=== PATIENT | male | born 1995 | race Caucasian/White ===

== ENCOUNTER 2016-05-22 20:11 | Emergency (ER) | payer MEDICAID ==
[~2016-05-22] VITALS: Ht 188 cm; Wt 87.5 kg
[~2016-05-22 20:11] MED LIST: TYLENOL ES500 MG PO
[2016-05-22 20:21] VITALS: BP 144/73
--- NOTE | 2016-05-22 21:35 | NUR ---
TO ER BED 6
--- NOTE | 2016-05-22 21:35 | NUR ---
PT IS 20/M BIB SELF TO ED WITH C/O DIAARHEA WITH BLOOD, ABDOMINAL PAIN X 1 DAY, PT STATES HX. CHRONIC DIARRHEA. HX. ANXIETY, DEPRESSION ON CLONAPIN, CITALOPRAM. DENIES N/V AT THIS TIME; SKIN IS PINK/WARM/DRY; AAOX4 WITH EVEN AND STEADY GAIT; LUNGS CLEAR BL; HR EVEN AND REGULAR; PT DENIES ANY FEVER, CP, SOB, OR COUGH AT THIS TIME; PATIENT STATES PAIN OF 1/10 AT THIS TIME; VSS; PATIENT POSITIONED FOR COMFORT; HOB ELEVATED; BEDRAILS UP X2; BED DOWN. ER MD MADE AWARE OF PT STATUS.
[2016-05-22 22:21] VITALS: BP 133/72
--- NOTE | 2016-05-22 22:21 | NUR ---
Patient discharged with v/s stable. Written and verbal after care instructions given and explained. Patient alert, oriented and verbalized understanding of instructions. Ambulatory with steady gait. All questions addressed prior to discharge. ID band removed. Patient advised to follow up with PMD. Rx of TRAMADOL, PROTONIX, FLAGYL GIVEN given. Patient educated on indication of medication including possible reaction and side effects. Opportunity to ask questions provided and answered.
== END 2016-05-22 22:21 | disposition home or self-care (01) ==
LOC: MED 20:11
DX: A04.7 Enterocolitis due to Clostridium difficile (principal)

== ENCOUNTER 2017-07-30 16:13 | Emergency (ER) | payer MEDICAID ==
[~2017-07-30] VITALS: Ht 188 cm; Wt 91.4 kg
[~2017-07-30 16:13] MED LIST changes: +ACET-6134 PO; -TYLENOL ES500 MG PO
[2017-07-30 16:14] VITALS: BP 128/71
--- NOTE | 2017-07-30 16:19 | NUR ---
PT AMBULATES TO BED 11
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
--- NOTE | 2017-07-30 16:36 | NUR ---
XRAY AT BEDSIDE.
[2017-07-30 17:00] VITALS: BP 128/71
--- NOTE | 2017-07-30 17:00 | NUR ---
Patient discharged with v/s stable. Written and verbal after care instructions given and explained. Patient verbalized understanding. Ambulatory with steady gait. All questions addressed prior to discharge. Advised to follow up with PMD.
== END 2017-07-30 17:00 | disposition home or self-care (01) ==
LOC: MED 16:13
DX: S62.636A Displaced fracture of distal phalanx of right little finger, initial encounter for closed fracture (principal); X58.XXXA Exposure to other specified factors, initial encounter; Y93.89 Activity, other specified; Y99.8 Other external cause status; Y92.89 Other specified places as the place of occurrence of the external cause
CPT/HCPCS: 73140; 99284

== ENCOUNTER 2017-11-13 17:38 | Emergency (ER) | payer MEDICAID ==
[~2017-11-13] VITALS: Ht 188 cm; Wt 90.7 kg
[2017-11-13 18:20] VITALS: BP 120/69
--- NOTE | 2017-11-13 20:29 | NUR ---
VSS AT THIS TIME. UA COLLECTED. PT UPDATED REGARDING BED TIME.
--- NOTE | 2017-11-13 20:40 | NUR ---
N/A IN ER LOBBY
--- NOTE | 2017-11-13 20:51 | NUR ---
3RD CALL N/A IN ER LOBBY
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
--- NOTE | 2017-11-13 21:26 | NUR ---
Dr. [place] evaluating patient at bedside.
[2017-11-13] MEDS ORDERED: cefTRIAXone 250 MG in LIDOCAINE MPF 1% - 5 mL VIAL 0.9 ML IM ONE (21:45)
[2017-11-13] MEDS ORDERED: AZITHROMYCIN 250 MG TAB PO ONE (21:45)
[2017-11-13 22:15] VITALS: BP 119/82
[2017-11-13 22:20] LABS: APPEARANCE,URINE CLEAR (CLEAR); BILIRUBIN,URINE NEGATIVE (NEGATIVE); BLOOD, URINE NEGATIVE (NEGATIVE); COLOR,URINE YELLOW (YELLOW); LEUKOCYTE ESTERASE ,URINE NEGATIVE (NEGATIVE); NITRITE, URINE NEGATIVE (NEGATIVE); UGLUCOSE NEGATIVE (NEGATIVE)
== END 2017-11-13 22:15 | disposition home or self-care (01) ==
LOC: MED 17:38
DX: Z11.3 Encounter for screening for infections with a predominantly sexual mode of transmission (principal); Z88.2 Allergy status to sulfonamides
CPT/HCPCS: 36415; 81003; 96372; 99284; J0696; J2001

== ENCOUNTER 2018-12-04 22:59 | Emergency (ER) | payer MEDICAID ==
[~2018-12-04] VITALS: Ht 188 cm; Wt 97.5 kg
[2018-12-04 23:10] VITALS: BP 120/79
--- NOTE | 2018-12-04 23:15 | NUR ---
PT AMBULATED TO LOBBY.
--- NOTE | 2018-12-05 00:04 | NUR ---
PT AMBULATED TO ER BED 06
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
--- NOTE | 2018-12-05 01:45 | NUR ---
DEISI MEDINA CLEANED PT LACERATION
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
--- NOTE | 2018-12-05 03:27 | NUR ---
PT SLEEPING IN BED. NO SIGNS OF DISTRESS NOTED. WILL CONTINUE TO MONITOR.
[2018-12-05 03:31] VITALS: BP 127/86
--- NOTE | 2018-12-05 03:31 | NUR ---
DISCHARGE PAPERS GIVEN TO PT. STATES RELIEF. BLEEDING CONTROLLED. VSS. INSTRUCTED TO F/U WITH PCP AND WHEN TO RETURN TO ER. PT VERBALLIZED UNDERSTANDING OF DC INSTRUCTIONS. ALL QUESTIONS ANSWERED.
== END 2018-12-05 03:31 | disposition home or self-care (01) ==
LOC: MED 22:59
DX: S01.01XA Laceration without foreign body of scalp, initial encounter (principal); K21.9 Gastro-esophageal reflux disease without esophagitis; Z79.899 Other long term (current) drug therapy; Y09 Assault by unspecified means; Y93.89 Activity, other specified; Y92.89 Other specified places as the place of occurrence of the external cause; Y99.8 Other external cause status
CPT/HCPCS: 90471; 90715; 99283

== ENCOUNTER 2018-12-18 21:43 | Emergency (ER) | payer MEDICAID ==
[~2018-12-18] VITALS: Ht 188 cm; Wt 95.3 kg
[2018-12-18 22:02] VITALS: BP 133/68
[2018-12-18] MEDS ORDERED: cefTRIAXone 250 MG in LIDOCAINE MPF 1% 0.9 ML IM ONE (22:45)
[2018-12-18] MEDS ORDERED: AZITHROMYCIN 250 MG TAB PO ONE (22:45)
[2018-12-18] MEDS ORDERED: PHENAZOPYRIDINE 100 MG TAB PO ONE (22:45)
[2018-12-18 23:20] VITALS: BP 133/68
[2018-12-22 06:07] LABS: CHLAMYDIA TRACHOMATIS AMP DNA Positive (Negative)
== END 2018-12-18 23:18 | disposition home or self-care (01) ==
LOC: MED 21:43
DX: R30.0 Dysuria (principal); K21.9 Gastro-esophageal reflux disease without esophagitis; Z79.899 Other long term (current) drug therapy
CPT/HCPCS: 36415; 81002; 87491; 96372; 99283; J0696; J2001

== ENCOUNTER 2019-01-03 20:57 | Emergency (ER) | payer MEDICAID ==
[~2019-01-03] VITALS: Ht 185.4 cm; Wt 95.3 kg
[2019-01-03 21:00] VITALS: BP 142/91
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
--- NOTE | 2019-01-03 21:06 | NUR ---
PT AMBULATED TO LOBBY
[2019-01-03 21:44] LABS: APPEARANCE,URINE HAZY (CLEAR); BILIRUBIN,URINE NEGATIVE (NEGATIVE); BLOOD, URINE NEGATIVE (NEGATIVE); COLOR,URINE YELLOW (YELLOW); LEUKOCYTE ESTERASE ,URINE NEGATIVE (NEGATIVE); NITRITE, URINE NEGATIVE (NEGATIVE); PH,URINE 6.5 (5.0-9.0); UGLUCOSE NEGATIVE (NEGATIVE)
--- NOTE | 2019-01-03 22:06 | NUR ---
PT TAKEN TO BED 2
[2019-01-03] MEDS ORDERED: cefTRIAXone 250 MG in LIDOCAINE MPF 1% 0.9 ML IM ONE (23:00)
[2019-01-03] MEDS ORDERED: AZITHROMYCIN 250 MG TAB PO ONE (23:00)
--- NOTE | 2019-01-04 00:23 | NUR ---
Patient discharged with v/s stable. Written and verbal after care instructions given and explained. Patient verbalized understanding. Ambulatory with to home. All questions addressed prior to discharge. Advised to follow up with PMD. ACCOMPANIED BY GIRLFRIEND.
[2019-01-04 00:25] VITALS: BP 142/91
[2019-01-06 06:17] LABS: CHLAMYDIA TRACHOMATIS AMP DNA Negative (Negative)
== END 2019-01-04 00:23 | disposition home or self-care (01) ==
LOC: MED 20:57
DX: A64 Unspecified sexually transmitted disease (principal); K21.9 Gastro-esophageal reflux disease without esophagitis; Z79.899 Other long term (current) drug therapy; Z88.2 Allergy status to sulfonamides
CPT/HCPCS: 36415; 81003; 96372; 99283; J0696; J2001; 87491

== ENCOUNTER 2019-01-08 22:43 | Emergency (ER) | payer MEDICAID ==
[~2019-01-08] VITALS: Ht 188 cm; Wt 101.7 kg
[2019-01-08 22:55] VITALS: BP 137/82
--- NOTE | 2019-01-08 23:02 | NUR ---
PT AMBULATES TO LOBBY WITH STEADY GAIT. URINE CUP PROVIDED FOR SAMPLE. AWAITING AVAILABLE BED.
[2019-01-08 23:40] LABS: APPEARANCE,URINE CLEAR (CLEAR); BILIRUBIN,URINE 1+ (NEGATIVE); BLOOD, URINE TRACE-I (NEGATIVE); COLOR,URINE YELLOW (YELLOW); LEUKOCYTE ESTERASE ,URINE NEGATIVE (NEGATIVE); NITRITE, URINE NEGATIVE (NEGATIVE); PH,URINE 5.5 (5.0-9.0); UGLUCOSE NEGATIVE (NEGATIVE)
[2019-01-08 23:52] LABS: WBC,URINE NONE SEEN /HPF (0-5)
[2019-01-08 23:53] LABS: RBC,URINE 20-50 /HPF (0-5)
--- NOTE | 2019-01-09 00:49 | NUR ---
PT AMBULATED TO BED 10.
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
--- NOTE | 2019-01-09 01:34 | NUR ---
Patient discharged with v/s stable. Written and verbal after care instructions given and explained. Patient alert, oriented and verbalized understanding of instructions. Ambulatory with steady gait. All questions addressed prior to discharge. ID band removed. Patient advised to follow up with PMD. Rx of DOXYCLYCLINE given. Patient educated on indication of medication including possible reaction and side effects. Opportunity to ask questions provided and answered.
[2019-01-12 06:08] LABS: CHLAMYDIA TRACHOMATIS AMP DNA Negative (Negative)
== END 2019-01-09 01:34 | disposition home or self-care (01) ==
LOC: MED 22:43
DX: R36.9 Urethral discharge, unspecified (principal); K21.9 Gastro-esophageal reflux disease without esophagitis; Z79.899 Other long term (current) drug therapy
CPT/HCPCS: 36415; 81001; 87086; 87491; 99283

== ENCOUNTER 2019-01-16 00:31 | Emergency (ER) | payer MEDICAID ==
[~2019-01-16] VITALS: Ht 188 cm; Wt 99.8 kg
[2019-01-16 00:35] VITALS: BP 139/80
--- NOTE | 2019-01-16 00:35 | NUR ---
TO BED # 02 AMBULATORY
--- NOTE | 2019-01-16 00:40 | NUR ---
23 Y/O MALE PRESENTS TO ED FOR FOLLOW UP REGARDING PENILE D/C. PT WAS SEEN AT ED 1 WEEK AGO AND ADVISED TO RETURN FOR A FOLLOW UP CHECKUP. PT RECEIVED DOXYCYLINE AT D/C, COMPLIANT WITH MEDICATION. PT DENIES ANY D/C AT THE MOMENT. NO PAIN VOIDING. ERMD AWARE. WILL CONTINUE TO MONITOR.
--- NOTE | 2019-01-16 00:50 | NUR ---
EVALUATING PT AT BEDSIDE
--- NOTE | 2019-01-16 01:00 | NUR ---
PT DISCHARGED WITH PAPERWORK. NO PENILE DISCHARGE NOTED. PT DENIES ANY PAIN. NO RX PROVIDED. TOLD PT TO FOLLOW UP WITH PCP AND WHEN TO RETURN TO ED. PT VSS. ALL QUESTIONS ANSWERED.
== END 2019-01-16 01:00 | disposition home or self-care (01) ==
LOC: MED 00:31
DX: Z11.3 Encounter for screening for infections with a predominantly sexual mode of transmission (principal); K21.9 Gastro-esophageal reflux disease without esophagitis; Z79.899 Other long term (current) drug therapy; Z88.2 Allergy status to sulfonamides
CPT/HCPCS: 99283

== ENCOUNTER 2019-05-16 00:54 | Emergency (ER) | payer MEDICAID ==
[~2019-05-16] VITALS: Ht 188 cm; Wt 99.8 kg
[2019-05-16 01:05] VITALS: BP 126/74
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
--- NOTE | 2019-05-16 01:30 | NUR ---
URINE COLLECTED/ DIP COMPLETED.
[2019-05-16 02:16] LABS: APPEARANCE,URINE HAZY (CLEAR); BILIRUBIN,URINE NEGATIVE (NEGATIVE); BLOOD, URINE NEGATIVE (NEGATIVE); COLOR,URINE YELLOW (YELLOW); LEUKOCYTE ESTERASE ,URINE NEGATIVE (NEGATIVE); NITRITE, URINE NEGATIVE (NEGATIVE); PH,URINE 5.5 (5.0-9.0); UGLUCOSE NEGATIVE (NEGATIVE)
[2019-05-16 02:42] LABS: RBC,URINE 0-5 /HPF (0-5)
--- NOTE | 2019-05-16 03:03 | NUR ---
ERMD AT BEDSIDE EVALUATING PT.
[2019-05-16] MEDS ORDERED: cefTRIAXone 250 MG in LIDOCAINE MPF 1% 0.9 ML IM STA (03:05)
[2019-05-16] MEDS ORDERED: cefTRIAXone 250 MG VIAL ONE (03:22)
[2019-05-16] MEDS ORDERED: LIDOCAINE MPF 1% 5 ML ONE (03:23)
[2019-05-16 03:40] VITALS: BP 126/74
[2019-05-18 06:25] LABS: CHLAMYDIA TRACHOMATIS AMP DNA Negative (Negative)
== END 2019-05-16 03:42 | disposition home or self-care (01) ==
LOC: MED 00:54
DX: A64 Unspecified sexually transmitted disease (principal); R36.9 Urethral discharge, unspecified; K21.9 Gastro-esophageal reflux disease without esophagitis; Z88.2 Allergy status to sulfonamides; Z79.899 Other long term (current) drug therapy
CPT/HCPCS: 36415; 81001; 87086; 87491; 96372; 99283; J0696; J2001

== ENCOUNTER 2019-09-04 00:22 | Emergency (ER) | payer MEDICAID ==
[~2019-09-04] VITALS: Ht 182.9 cm; Wt 96.2 kg
[2019-09-04 00:28] VITALS: BP 129/79
--- NOTE | 2019-09-04 00:35 | NUR ---
PT AMBULATED TO BED 9 WITH STEADY GAIT.
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
--- NOTE | 2019-09-04 00:49 | NUR ---
Shamika dhillon in [facility] - 09/04/19 at 0055 by [facility] URINE SPECIMEN OBTAINED.
--- NOTE | 2019-09-04 00:50 | NUR ---
UNABLE TO COLLECT URINE SPECIMEN. PT GIVEN PO FLUIDS.
--- NOTE | 2019-09-04 00:58 | NUR ---
DR. PIKE AT BEDSIDE FOR EVALUATION.
[2019-09-04] MEDS ORDERED: AZITHROMYCIN 250 MG TAB PO STA (01:02)
[2019-09-04] MEDS ORDERED: cefTRIAXone 250 MG in LIDOCAINE MPF 1% 0.9 ML IM STA (01:02)
--- NOTE | 2019-09-04 01:12 | NUR ---
URINE SPECIMEN PROVIDED AND HANDED TO LAB.
[2019-09-04] MEDS ORDERED: cefTRIAXone 250 MG in LIDOCAINE MPF 1% 0.9 ML IM ONE (01:20)
[2019-09-04] MEDS ORDERED: cefTRIAXone 250 MG VIAL ONE (01:20)
[2019-09-04] MEDS ORDERED: AZITHROMYCIN 250 MG TAB PO ONE (01:20)
[2019-09-04] MEDS ORDERED: LIDOCAINE MPF 1% 5 ML ONE (01:21)
--- NOTE | 2019-09-04 01:38 | NUR ---
LAB AT BEDSIDE.
[2019-09-04 02:14] LABS: APPEARANCE,URINE CLEAR (CLEAR); BILIRUBIN,URINE NEGATIVE (NEGATIVE); BLOOD, URINE NEGATIVE (NEGATIVE); COLOR,URINE YELLOW (YELLOW); LEUKOCYTE ESTERASE ,URINE NEGATIVE (NEGATIVE); NITRITE, URINE NEGATIVE (NEGATIVE); PH,URINE 6.5 (5.0-9.0); UGLUCOSE NEGATIVE (NEGATIVE)
[2019-09-04 02:27] VITALS: BP 129/79
== END 2019-09-04 02:27 | disposition home or self-care (01) ==
LOC: MED 00:22
DX: Z11.3 Encounter for screening for infections with a predominantly sexual mode of transmission (principal); F41.9 Anxiety disorder, unspecified; K21.9 Gastro-esophageal reflux disease without esophagitis; Z88.1 Allergy status to other antibiotic agents; Z79.899 Other long term (current) drug therapy
CPT/HCPCS: 81003; 86703; 87086; 96372; 99283; J0696; J2001

== ENCOUNTER 2019-11-28 14:16 | Emergency (ER) | payer MEDICAID ==
[~2019-11-28] VITALS: Ht 188 cm; Wt 93.0 kg
[2019-11-28 14:27] VITALS: BP 121/81
--- NOTE | 2019-11-28 14:27 | NUR ---
24 Y/O M C/C THROAT DISCOMFORT X3 DAYS. PER PT BELIEVES IT WAS A CHICKEN BONE OR FISH BONE, FEELS LIKE SOMETHING IS "STUCK". PT DENIES PAIN,DYSPNEA. PT PRESENTS A/OX4,EUPNIC,AMBULATORY,A/OX4,VSS. MOREOVER, PT CONCERN OF HIV AND BELIEVES HIS THROAT DISCOMFORT POTENTIALLY COULD BE FROM HIV. PT REQUESTING BLOOD WORK. ALLERGIES TO SULFA. HX ANXIETY. NO RX. NO NVD. SIDE RAIL X1.
--- NOTE | 2019-11-28 14:34 | NUR ---
PT GIVEN INFORMATION FOR STI [facility] CLINICS, PER ERMD.
[2019-11-28 15:48] VITALS: BP 121/81
== END 2019-11-28 15:48 | disposition home or self-care (01) ==
LOC: MED 14:16
DX: T17.228A Food in pharynx causing other injury, initial encounter (principal); K21.9 Gastro-esophageal reflux disease without esophagitis; F12.10 Cannabis abuse, uncomplicated; F17.210 Nicotine dependence, cigarettes, uncomplicated; Z88.1 Allergy status to other antibiotic agents; Z88.2 Allergy status to sulfonamides; Z79.899 Other long term (current) drug therapy; X58.XXXA Exposure to other specified factors, initial encounter; Y93.89 Activity, other specified; Y92.89 Other specified places as the place of occurrence of the external cause; Y99.8 Other external cause status
CPT/HCPCS: 70360; 99283; 99284

== ENCOUNTER 2019-12-06 16:27 | Emergency (ER) | payer MEDICAID ==
[~2019-12-06] VITALS: Ht 188 cm; Wt 93.0 kg
[2019-12-06 16:47] VITALS: BP 143/88
--- NOTE | 2019-12-06 16:52 | NUR ---
AMB TO BED 03
--- NOTE | 2019-12-06 17:00 | NUR ---
24 YEAR OLD MALE COMPLAINS OF THROAT NUMBNESS SINCE LAST VISIT TO ER. PT STATES THAT IT HAS BEEN GETTING WORSE, AND THAT WHEN HE EATS THAT THE BACK OF HIS THROAT GETS VERY IRRITATED TO THE POINT OF VOMITTING. PT AOX4, BREATHING EVEN AND UNLABORED, SKIN WARM AND DRY. BED IN LOWEST POSITIION, LOCKED, BED RAIL UPX1. PMH - ANXIETY ALLERGIES - SULFA
[2019-12-06 17:25] VITALS: BP 143/88
--- NOTE | 2019-12-06 17:25 | NUR ---
Patient discharged with v/s stable. Written and verbal after care instructions about hemorrhoids and thrush given and explained. Patient alert, oriented and verbalized understanding of instructions. Ambulatory with steady gait. All questions addressed prior to discharge. ID band removed. Patient advised to follow up with PMD. Rx of [facility] hemorrhoidal suppositories, hydrocortisone 2.5% topical, nystatin, zyrtec given. Patient educated on indication of medication including possible reaction and side effects. Opportunity to ask questions provided and answered.
== END 2019-12-06 17:25 | disposition home or self-care (01) ==
LOC: MED 16:27
DX: B37.9 Candidiasis, unspecified (principal); K64.9 Unspecified hemorrhoids; F17.200 Nicotine dependence, unspecified, uncomplicated; K21.9 Gastro-esophageal reflux disease without esophagitis; F41.9 Anxiety disorder, unspecified; F12.90 Cannabis use, unspecified, uncomplicated; Z71.6 Tobacco abuse counseling; Z79.899 Other long term (current) drug therapy; Z88.1 Allergy status to other antibiotic agents
CPT/HCPCS: 99283

== ENCOUNTER 2020-07-08 12:07 | Emergency (ER) | payer MEDICAID ==
[~2020-07-08] VITALS: Ht 188 cm; Wt 95.7 kg
[~2020-07-08 12:07] MED LIST changes: +ACET-10509 PO; -ACET-6134 PO
[2020-07-08 12:11] VITALS: BP 157/82
--- NOTE | 2020-07-08 12:16 | NUR ---
Pt ambulated to ER bed 3 with a steady gait.
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
--- NOTE | 2020-07-08 12:20 | NUR ---
Dr. Flannery is evaluating the patient at bedside.
[2020-07-08] MEDS ORDERED: KETOROLAC 60 MG/2 ML VIAL IM ONE (12:25)
[2020-07-08] MEDS ORDERED: LIDOCAINE MPF 1% 10 MG/ML VIAL INJ ONE (12:25)
--- NOTE | 2020-07-08 12:31 | NUR ---
I&D SET UP AT BED SIDE ERMD NOTIFIED
--- NOTE | 2020-07-08 12:41 | NUR ---
Dr. Flannery at bedside for procedure.
[2020-07-08] MEDS ORDERED: DOCU-299 PO (12:50)
[2020-07-08] MEDS ORDERED: IBUP-2213 PO (12:50)
[2020-07-08] MEDS ORDERED: ACET-8386 PO (12:50)
[2020-07-08 13:12] VITALS: BP 157/82
--- NOTE | 2020-07-08 13:12 | NUR ---
Patient discharged with v/s stable. Written and verbal after care instructions given and explained. Patient alert, oriented and verbalized understanding of instructions. Ambulatory with steady gait. All questions addressed prior to discharge. ID band removed. Patient advised to follow up with PMD. Rx of colace 100mg BID PO prn constipation, ibuprofen 600mg PO TID PRN pain, and norco 5mg-325mg PO Q6H PRN severe pain given. Patient educated on indication of medication including possible reaction and side effects. Opportunity to ask questions provided and answered.
== END 2020-07-08 13:12 | disposition home or self-care (01) ==
LOC: MED 12:07
DX: K64.5 Perianal venous thrombosis (principal); R19.7 Diarrhea, unspecified; K21.9 Gastro-esophageal reflux disease without esophagitis; F17.210 Nicotine dependence, cigarettes, uncomplicated; Z88.1 Allergy status to other antibiotic agents; Z88.2 Allergy status to sulfonamides
CPT/HCPCS: 46040; 96372; 99284; J1885; J2001

== ENCOUNTER 2020-09-25 16:54 | Emergency (ER) | payer MEDICAID ==
[~2020-09-25] VITALS: Ht 188 cm; Wt 95.3 kg
[~2020-09-25 16:54] MED LIST changes: +ACET-8386 PO; +DOCU-299 PO; +IBUP-2213 PO
[2020-09-25 17:28] VITALS: BP 148/90
--- NOTE | 2020-09-25 17:36 | NUR ---
LOBBY, PT GIVEN URINE CUP
[2020-09-25] MEDS ORDERED: DOPPLER MC ONE (18:22)
[2020-09-25] MEDS ORDERED: INTUBATION KIT MC ONE (18:23)
--- NOTE | 2020-09-25 20:25 | NUR ---
24 Y/O MALE PATIENT PRESENTS TO ED WITH FEVER, NAUSEA AND VOMITTING. PT STATES "I STARTED HAVING FEVER TODAY, AND I JUST FEEL REALLY TIRED. MY EX CALLED ME TODAY SAYING SHE HAS CHLAMYDIA" . DENIES V/D; SKIN IS PINK/WARM/DRY; AAOX4 WITH EVEN AND STEADY GAIT; LUNGS CLEAR BL; HR EVEN AND REGULAR; PT DENIES ANY , CP, SOB, OR COUGH AT THIS TIME; PATIENT STATES PAIN OF 6/10 AT THIS TIME; VSS; PATIENT POSITIONED FOR COMFORT; HOB ELEVATED; BEDRAILS UP X2; BED DOWN. ER MD MADE AWARE OF PT STATUS. NKA PMH: DENIES
--- NOTE | 2020-09-25 20:25 | NUR ---
PT AMBULATED TO BED 10
[2020-09-25] MEDS ORDERED: cefTRIAXone 1,000 MG in LIDOCAINE MPF 1% 2.1 ML IM ONE (20:45)
--- NOTE | 2020-09-25 20:45 | NUR ---
CHANDA CORDOVAIA, STREP SWABS AND URINE SENT TO LAB, HANDED TO DONI PUCKETT
[2020-09-25] MEDS ORDERED: cefTRIAXone 1,000 MG VIAL ONE (21:15)
[2020-09-25] MEDS ORDERED: LIDOCAINE MPF 1% 5 ML ONE (21:15)
[2020-09-25] MEDS ORDERED: IBUP-2213 PO (21:19)
[2020-09-25] MEDS ORDERED: DOXY100C9 PO (21:19)
[2020-09-25] MEDS ORDERED: HYDROcodone/APAP 5/325 MG 1 TAB TAB PO ONE (21:35)
[2020-09-25 21:44] VITALS: BP 148/90
--- NOTE | 2020-09-25 21:45 | NUR ---
Patient discharged with v/s stable. Written and verbal after care instructions given and explained. Patient alert, oriented and verbalized understanding of instructions. Ambulatory with steady gait. All questions addressed prior to discharge. ID band removed. Patient advised to follow up with PMD. Rx of IBUPROFEN AND DOXYCYCLINE HYCLATE given. Patient educated on indication of medication including possible reaction and side effects. Opportunity to ask questions provided and answered.
== END 2020-09-25 21:45 | disposition home or self-care (01) ==
LOC: MED 16:54
DX: J02.9 Acute pharyngitis, unspecified (principal); R50.9 Fever, unspecified; K21.9 Gastro-esophageal reflux disease without esophagitis; Z79.899 Other long term (current) drug therapy; Z88.1 Allergy status to other antibiotic agents
CPT/HCPCS: 87081; 96372; 99283; J0696; J2001

== ENCOUNTER 2021-02-18 13:55 | Emergency (ER) | payer MEDICAID ==
[~2021-02-18 13:55] MED LIST changes: +DOXY-690 PO
--- NOTE | 2021-02-18 14:40 | NUR ---
PATIENT LEFT WITHOUT BEING SEEN BY DR. QUEEN. NO FURTHER CARE PROVIDED FOR PATIENT.
--- NOTE | 2021-02-18 14:44 | NUR ---
PT LEFT WITHOUT BEING SEEN AT THIS TIME.
== END 2021-02-18 14:40 | disposition left against medical advice (07) ==
LOC: MED 13:55
DX: Z53.21 Procedure and treatment not carried out due to patient leaving prior to being seen by health care provider (principal)

== ENCOUNTER 2021-05-08 16:58 | Emergency (ER) | payer MEDICAID ==
[~2021-05-08] VITALS: Ht 188 cm; Wt 99.8 kg
[2021-05-08 17:06] VITALS: BP 139/88
[2021-05-08] MEDS ORDERED: LIDOCAINE MPF 1% 5 ML ONE (17:56)
[2021-05-08] MEDS ORDERED: cefTRIAXone 500 MG VIAL ONE (17:56)
[2021-05-08] MEDS ORDERED: DOXY-690 PO (17:57)
[2021-05-08] MEDS: cefTRIAXone 500 MG in LIDOCAINE MPF 1% 1 ML IM ONE (18:05)
[2021-05-08] MEDS: DOXYCYCLINE 100 MG CAP PO STA (18:05)
[2021-05-08 18:11] VITALS: BP 139/88
--- NOTE | 2021-05-08 18:11 | NUR ---
25 Y/O MALE C/O PENILE DISCHARGE AND PAIN RATED 3/10 WITH REDNESS TO TIP X1DAY. PATIENT STATED A GIRL HE WAS SEEING LET HIM KNOW SHE HAD GONORRHEA. HE DESIRES TO HAVE THIS CHECKED OUT. DENIES PMH ALLERGIES: SULFA
== END 2021-05-08 18:12 | disposition home or self-care (01) ==
LOC: MED 16:58
DX: R30.0 Dysuria (principal); M25.561 Pain in right knee; M25.562 Pain in left knee; K21.9 Gastro-esophageal reflux disease without esophagitis; F17.210 Nicotine dependence, cigarettes, uncomplicated; F12.90 Cannabis use, unspecified, uncomplicated; Z88.1 Allergy status to other antibiotic agents; Z79.899 Other long term (current) drug therapy; Z20.2 Contact with and (suspected) exposure to infections with a predominantly sexual mode of transmission
CPT/HCPCS: 36415; 81002; 87491; 96372; 99283; J0696; J2001